=== PATIENT | female | born 1965 | race Caucasian/White ===

== ENCOUNTER 2025-02-25 07:32 | Day surgery (SDC) | payer OTHER ==
[2025-02-25] MEDS ORDERED: Lactated Ringers 1,000 ML IV ONE (08:06)
[2025-02-25] MEDS: Ak-Dilate OPHTHALMIC*** 0.71 ML, Cyclogyl 1% OPHTH SOL 0.71 ML, GATIFLOXACIN 0.5% OPHTH... OP SCH (08:38)
[2025-02-25] MEDS: TETRACAINE 0.5% STERI-UNIT SOL OP ONE ×2 (08:38→08:54)
[2025-02-25] MEDS: Lactated Ringers 1,000 ML IV SCH (08:38)
[2025-02-25 09:02] LABS: ANION GAP 14.8 MEQ/L (5-15); Calcium 9.2 mg/dL (8.4-10.2); Creatinine 1 0.72 mg/dL (0.52-1.04); EST GLOMERULAR FILTRATION RATE 95.1 ML/MIN; Potassium 4.2 mmol/L (3.5-5.1)
[2025-02-25] MEDS ORDERED: BETADINE 5% OPHTHALMIC 30 ML OP NR (09:30)
[2025-02-25] MEDS ORDERED: VIGAMOX/BSS 0.15% SYR IO NR (09:30)
[2025-02-25] MEDS ORDERED: DEXMEDETOMIDINE 80 MCG/20ML-NS IV NR (09:30)
[2025-02-25] MEDS ORDERED: Epinephrine Preservative Free 1 MG/ML INTRAOP NR (09:30)
[2025-02-25] MEDS ORDERED: TRIAMCINOLONE 15 MG/ML INJ INTRAOP NR (09:30)
[2025-02-25] MEDS ORDERED: Zofran 4 MG/2 ML VIAL IV PRN (09:45)
[2025-02-25] MEDS ORDERED: propofoL IV ONE ×2 (10:32→10:55)
[2025-02-25] MEDS ORDERED: SUBLIMAZE 100 MCG/2 ML ONE (10:32)
[2025-02-25] MEDS ORDERED: Versed 2 MG/2 ML Injection ONE (10:32)
[2025-02-25 11:07] VITALS: RESP 18; TEMP 97.9
[2025-02-25 11:34] VITALS: BP 120/62; PULSE 73; O2SAT 95
[2025-02-25] MEDS: ACETAZOLAMIDE 250 MG TABLET PO ONE (11:50)
== END 2025-02-25 11:34 | disposition home or self-care (01) ==
LOC: SDC 07:32
PROVIDERS: ATTEND Ophthalmology
DX: H25.812 Combined forms of age-related cataract, left eye (principal); I51.9 Heart disease, unspecified; Z86.73 Personal history of transient ischemic attack (TIA), and cerebral infarction without residual deficits
CPT/HCPCS: 36415; 80048; 93005; C1780; J0171; J2250; J2704; J3010; A9270-GY